=== PATIENT | male | born 1955 | race African-American/Black ===

== ENCOUNTER 2017-06-24 18:44 | Emergency (ER) | payer MEDICAID ==
[~2017-06-24] VITALS: Ht 175.3 cm; Wt 80.0 kg
[~2017-06-24 18:44] MED LIST: AMLO10TA4; ASPI-785; LISI20TA; OMEP20TA15
[2017-06-24 20:39] LABS: CLARITY URINE CLOUDY (CLEAR); COLOR URINE YELLOW (YELLOW); GLUCOSE URINE NEGATIVE (NEGATIVE); KETONES URINE TRACE (NEGATIVE); LEUKOCYTE ESTERASE URINE 2+ (NEGATIVE); NITRITE URINE NEGATIVE (NEGATIVE); OCCULT BLOOD URINE NEGATIVE (NEGATIVE); PH URINE 6.5 (4.5-8.0); PROTEIN URINE NEGATIVE (NEGATIVE); SPECIFIC GRAVITY URINE 1.017 (1.005-1.030)
[2017-06-24 20:47] LABS: EOSINOPHILS % 2.5 % (0.0-5.0); HEMATOCRIT. 37.8 % (42.0-52.0); HEMOGLOBIN. 12.6 g/dL (14.0-18.0); MEAN CORPUSCULAR VOLUME 83.5 fL (80.0-94.0); MEAN PLATELET VOLUME 8.1 fl (7.4-10.4); MONOCYTES % 6.7 % (2.0-8.0); NEUTROPHILS % 64.8 % (40.0-76.0); PLATELET 204 x1000/uL (130-400); RED BLOOD CELL COUNT 4.52 mill/uL (4.7-6.1)
[2017-06-24 20:52] LABS: CHLORIDE 104 mEq/L (98-107); INR 1.1; PROTHROMBIN TIME 11.8 sec
[2017-06-24 20:55] LABS: CARBON DIOXIDE 28 mEq/L (21-32)
[2017-06-25 01:40] VITALS: BP 130/81
== END 2017-06-25 01:55 ==
LOC: ER 19:14
DX: N30.00 Acute cystitis without hematuria (principal); J44.9 Chronic obstructive pulmonary disease, unspecified; Z79.82 Long term (current) use of aspirin; Z87.01 Personal history of pneumonia (recurrent)
CPT/HCPCS: 36415; 71010; 80053; 81001; 85025; 85610; 93005; 99285; Z7610